=== PATIENT | male | born 1980 | race Caucasian/White ===

== ENCOUNTER 2020-11-19 21:53 | Emergency (ER) | payer OTHER ==
[~2020-11-19] VITALS: Ht 172.7 cm; Wt 111.1 kg
[~2020-11-19 21:53] MED LIST: HYDR-4227 PO; OMEP20TA2 PO; PSEU30TA37 PO; TRM50T PO
[2020-11-19 22:06] VITALS: BP 138/100
--- NOTE | 2020-11-19 22:13 | ED Cough/URI ---
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 HAS NOT HAD ANY SIGNIFICANT SIDE EFFECTS. NO KNOWN DIRECT/CLOSE CONTACT WITH ANYONE WITH COVID-19 PCP: DR. LONGORIA Allergies and Home Medications Allergies Coded Allergies: Sulfa (Sulfonamide Antibiotics) (Verified Allergy, Unknown, 03/08/16) Home Medications Hydrocodone/Acetaminophen 1 Each Tablet, 1 EACH PO Q4 - 6H Prescribed by: ERNESTINA BREWER on 03/08/16 1303 Pseudoephedrine HCl 30 Mg Tablet, 30 MG PO DAILY, (Reported) Patient Home Medication List Home Medication List Reviewed: Yes Review of Systems Review of Systems Constitutional: see HPI EENTM: no symptoms reported Respiratory: no symptoms reported; No cough, No short of breath Cardiovascular: no symptoms reported Gastrointestinal: no symptoms reported Genitourinary: no symptoms reported Musculoskeletal: no symptoms reported Skin: no symptoms reported Psychiatric/Neurological: No Symptoms Reported Hematologic/Lymphatic: No Symptoms Reported Immunological/Allergic: no symptoms reported Past [id number] Hx Past Med/Social Hx: Reviewed and Corrections made Patient Social History Alcohol Use: Denies Use Recreational Drug Use: No Smoking Status: Never a Smoker Recent Foreign Travel: No Contact w/Someone Who Travel: No Immunizations Up To Date Date of Influenza Vaccine: Aug 20, 2015 Past Medical History Surgeries: No Respiratory: Yes Sleep Apnea Currently Using CPAP: Yes Cardiac: No Neurological: No Genitourinary: No Gastrointestinal: Yes Gastroesophageal Reflux, Hiatal Hernia Musculoskeletal: No Endocrine: No HEENT: No Cancer: No Psychosocial: No Integumentary: No Blood Disorders: No Physical Exam Vital Signs - First Documented 11/19/20 22:06 Temp 36.3 Pulse 93 Resp 17 B/P (MAP) 138/100 (113) O2 Delivery Room Air Capillary Refill : Height: 5'8.00" Weight: 243lbs. 0.0oz. 110.240043qm; 37.0 BMI Method:Stated General Appearance: WD/WN, no apparent distress, other (DOES NOT APPEAR ILL OR TO BE IN ANY DISCOMFORT OR DISTRESS) HEENT: PERRL/EOMI, normal ENT inspection, TMs normal, pharynx normal Neck: non-tender, full range of motion, supple, normal inspection Respiratory: normal breath sounds, no respiratory distress, no accessory muscle use Cardiovascular: regular rate, rhythm, no edema, no JVD, no murmur Gastrointestinal: non tender, soft Extremities: normal inspection, no pedal edema, no calf tenderness, normal capillary refill Neurologic/Psychiatric: no motor/sensory deficits, alert, normal mood/affect, oriented x 3 Skin: normal color, warm/dry Progress/Results/Core Measures Suspected Sepsis SIRS Temperature: Pulse: Respiratory Rate: Blood Pressure / Mean: Results/Orders Lab Results Laboratory Tests Test 11/19/20 22:20 Range/Units Coronavirus 2018 (JESSE) Negative Negative Micro Results Microbiology 11/19/20 Influenza Types A,B Antigen (DANIEL) - Final, Complete My Orders Orders - NIGHAT LAGUNA DO Influenza A And B Antigens (11/19/20 22:07) Coronavirus Sars-Cov-2 So 2018 (11/19/20 22:07) Covid 19 Inhouse Test (11/19/20 22:07) Vital Signs/I&O 11/19/20 11/19/20 22:06 22:13 Temp 36.3 Pulse 93 Resp 17 B/P (MAP) 138/100 (113) O2 Delivery Room Air Room Air Capillary Refill : Progress Note : Progress Note PLACED IN ISOLATION ROOM PPE WORN AT ALL TIMES COVID-19 TESTING PERFORMED PT ADVISED OF NEED FOR QUARANTINE. Departure Impression Primary Impression: Person under investigation for COVID-19 Disposition: 01 HOME, SELF-CARE Condition: Stable Departure-Patient Inst. Referrals: AMANDA RUIZ MD (PCP/Family) Primary Care Physician Patient Instructions: Coronavirus Disease 2019 (COVID-19) (DC) Add. Discharge Instructions: LOTS OF CLEAR LIQUIDS TYLENOL AND MOTRIN NEEDED FOR PAIN OR FEVER OVER THE COUNTER MEDICATIONS NEEDED FOR SYMPTOMS QUARANTINE YOURSELF AND ALL HOUSEHOLD MEMBERS AND CLOSE CONTACTS FOR 2 WEEKS OR UNTIL CLEARED BY OR HEALTH DEPT All discharge instructions reviewed with patient and/or family. Voiced understanding. NIGHAT LAGUNA DO Nov 19, 2020 22:13
== END 2020-11-19 23:20 ==
LOC: EDUNIT# 21:53 → ER 21:55
DX: Z20.828 Contact with and (suspected) exposure to other viral communicable diseases (principal); Z88.2 Allergy status to sulfonamides
CPT/HCPCS: 87804; 99282; U0002; 87635